=== PATIENT | male | born 1970 | race Caucasian/White ===

== ENCOUNTER 2019-05-23 09:07 | Emergency (ER) | payer BC, SELFPAY ==
[2019-05-23 09:12] VITALS: BP 144/80; PULSE 86; RESP 16; TEMP 36.9; O2SAT 100
--- NOTE | 2019-05-23 09:27 | ED.EAR ---
HPI - Ear Problem General Chief complaint: Ear Stated complaint: Ears and some swelling Time Seen by Provider: 05/23/19 09:19 Source: patient and RN notes reviewed Mode of arrival: ambulatory Limitations: no limitations History of Present Illness HPI Narrative: Patient presents today complaining of pain and swelling to the left ear x2 days. Prior to this, he reports clogged sensation to the right ear, but no pain. Complains of decreased hearing bilaterally. He has tried cleaning his ears out with peroxide and taking ibuprofen without much relief. He currently rates his pain /10. Denies any additional symptoms to include drainage from the ears or fever. MD Complaint: ear pain and decreased hearing Related Data Home Medications Medication Instructions Recorded Confirmed aspirin 81 mg PO DAILY 03/15/19 05/23/19 atorvastatin 40 mg PO DAILY 03/15/19 05/23/19 diclofenac sodium [Voltaren-XR] 75 mg PO BID 03/15/19 05/23/19 losartan 50 mg PO DAILY 03/15/19 05/23/19 Allergies Allergy/AdvReac Type Severity Reaction Status Date / Time bupropion Allergy Mild Rash Verified 05/23/19 09:15 Review of Systems Review of Systems: Narrative: CONSTITUTIONAL: Denies body aches, fever, chills, or sweats. EYES: Denies visual changes, redness, or discharge. ENT: Denies rhinorrhea, congestion, sore throat. +Left ear pain, bilateral decreased hearing CARDIOVASCULAR: Denies chest pain, palpitations, or edema. RESPIRATORY: Denies cough or dyspnea. GASTROINTESTINAL: Denies abdominal pain, nausea, vomiting, or diarrhea. GENITOURINARY: Denies dysuria or hematuria. SKIN: Denies rash, itching, or wounds. MUSCULOSKELETAL: Denies back pain, joint pain, or myalgia. NEUROLOGIC: Denies headache, numbness, tingling, or weakness. PSYCH: Denies depression or anxiety. PMFSH Social History Social History (Updated 03/15/19 @ 19:21 by PABLITO Devlin) Smoking status: Current every day smoker Comments At time of signature, I have reviewed and agree with nursing past medical, surgical, social and family history unless otherwise noted. Please see nursing chart for further information. There is no relevant family history pertinent to the presenting complaint Exam Narrative: Exam Narrative: GENERAL: Well-appearing, well-nourished, and in no acute distress. HEAD: Normocephalic, atraumatic. EYES: EOMI. No redness or drainage. Conjunctivae normal. ENT: Mucous membranes pink and moist. Nares clear. No rhinorrhea. Right ear:Cerumen impaction Without movement or tragal tenderness. Left ear: +Movement and tragal tenderness. Erythema to the external ear. Severe swelling of the ear canal with purulent crusted drainage.Preauricular lymphadenopathy. Throat normal. Uvula midline. NECK: Normal AROM. Supple. No lymphadenopathy. CHEST: No respiratory distress. EXTREMITIES: Normal range of motion. No edema. SKIN: Warm, dry, no rash. NEURO: No focal deficits. Alert and oriented x3. Gait steady. PSYCH: Normal affect. No signs of depression or anxiety. Course Vital Signs Vital signs: Vital Signs Temperature 98.5 F 05/23/19 09:12 Pulse Rate 86 05/23/19 09:12 Respiratory Rate 16 05/23/19 09:12 Blood Pressure 144/80 H 05/23/19 09:12 Pulse Oximetry 100 05/23/19 09:12 Temperature 98.5 F 05/23/19 09:12 Pulse Rate 86 05/23/19 09:12 Respiratory Rate 16 05/23/19 09:12 Blood Pressure 144/80 H 05/23/19 09:12 Pulse Oximetry 100 05/23/19 09:12 Reviewed. Pt has been instructed to follow up with his PCP regarding his elevated blood pressure today. Procedures Other Procedure Procedure 1: Other Procedure: Ear wick placed in left ear canal without complications. Medical Decision Making Differential Diagnosis Differential Diagnosis: Otitis media, otitis externa, ruptured TM, serous otitis, eustachian tube dysfunction, cerumen impaction Vital Signs Vital Signs: Vital Signs Temperature 98.5 F 05/23/19 09:12 Pulse R
== END 2019-05-23 09:40 | disposition home or self-care (01) ==
PROVIDERS: Emergency Provider Nurse Practitioner
DX: H60.502 Unspecified acute noninfective otitis externa, left ear (principal); H61.21 Impacted cerumen, right ear; F17.200 Nicotine dependence, unspecified, uncomplicated; E78.00 Pure hypercholesterolemia, unspecified; K21.9 Gastro-esophageal reflux disease without esophagitis
CPT/HCPCS: 99213; G0463

== ENCOUNTER 2022-07-23 18:30 | Emergency (ER) | payer BC, SELFPAY ==
[2022-07-23 18:44] VITALS: BP 159/97; PULSE 97; RESP 16; TEMP 36.8; O2SAT 100
--- NOTE | 2022-07-23 19:04 | ED.NAVMDI ---
HPI - Nausea/Vomiting/Diarrhea General Chief complaint: Nausea/Vomiting/Diarrhea Stated complaint: nausea diarrhea Source: patient and RN notes reviewed Limitations: no limitations History of Present Illness HPI Narrative: Patient is a 51-year-old male who presents to the [facility] with complaints of nausea and diarrhea starting this morning. He denies vomiting. States that he had pizza from [employer] the night before last which upset his stomach. Patient denies abdominal pain or tenderness. Denies recent fevers chills. Patient states that he had to miss work due to his symptoms and is in need of a note. Related Data Home Medications Medication Instructions Recorded Confirmed aspirin 81 mg chewable tablet 81 mg PO DAILY 03/15/19 05/23/19 atorvastatin 40 mg tablet 40 mg PO DAILY 03/15/19 05/23/19 losartan 50 mg tablet 50 mg PO DAILY 03/15/19 05/23/19 Allergies Allergy/AdvReac Type Severity Reaction Status Date / Time bupropion Allergy Mild Rash Verified 07/23/22 18:54 Review of Systems Review of Systems: CONSTITUTIONAL: Denies fever, chills, or sweats. EYES: Denies visual changes, redness, or discharge. ENT: Denies otalgia and sore throat CARDIOVASCULAR: Denies chest pain, palpitations, or edema. RESPIRATORY: Denies cough or dyspnea. GASTROINTESTINAL: Denies abdominal pain and vomiting. Reports nausea and diarrhea. GENITOURINARY: Denies dysuria or hematuria. SKIN: Denies rash or itching. MUSCULOSKELETAL: Denies back pain, joint pain, or myalgia. NEUROLOGIC: Denies headache, numbness, or weakness. Pertinent positives per HPI. PMFSH Past Medical History Medical History GERD (gastroesophageal reflux disease) HLD (hyperlipidemia) HTN (hypertension) Social History Social History Smoking status: Current every day smoker Comments At the time of my signature, I reviewed and agree with the nursing past medical, surgical, social, and family history. There is no relevant family history pertinent to the patient complaint. Exam Narrative: GENERAL: This is a well-nourished, well-developed patient, in no apparent distress. HEAD: normocephalic, atraumatic. EYES: Sclera clear/white. Vision is grossly intact. EARS: External ears normal. Hearing grossly intact. NOSE: External nose normal with no obvious nasal discharge, nares without redness, no rhinorrhea. THROAT: Mucous membranes moist, posterior pharynx clear. NECK: Neck supple, non-tender without lymphadenopathy, masses or thyromegaly. CARDIOVASCULAR: Regular rate and rhythm without murmurs, gallops, or rubs. RESPIRATORY: Clear to auscultation. Breath sounds equal bilaterally. No wheezes, rales, or rhonchi. GASTROINTESTINAL: Abdomen soft, non-tender, nondistended. Bowel sounds are active. No hepato-splenomegaly, or palpable masses. No guarding. SKIN: warm, intact with no suspicious lesions or rash, good texture and turgor. NEURO: awake, alert, and oriented to person, place and time. There were no obvious focal neurologic abnormalities. Course Course Level of Care: Express Care Visit Vital Signs Vital signs: Vital Signs Temperature 98.3 F 07/23/22 18:44 Pulse Rate 97 07/23/22 18:44 Respiratory Rate 16 07/23/22 18:44 Blood Pressure 159/97 H 07/23/22 18:44 Pulse Oximetry 100 07/23/22 18:44 Oxygen Delivery Room Air 07/23/22 18:44 Temperature 98.3 F 07/23/22 18:44 Pulse Rate 97 07/23/22 18:44 Respiratory Rate 16 07/23/22 18:44 Blood Pressure 159/97 H 07/23/22 18:44 Pulse Oximetry 100 07/23/22 18:44 Oxygen Delivery Room Air 07/23/22 18:44 Reviewed MDM - Nausea/Vomiting/Diarrhea MDM Narrative Medical decision making narrative: You've been diagnosed with a viral illness that would not require antibiotics at this time. Take the Zofran ODT at home as directed for nausea and get plenty of fluids. Y
== END 2022-07-23 19:06 | disposition home or self-care (01) ==
PROVIDERS: Emergency Provider Nurse Practitioner
DX: A08.4 Viral intestinal infection, unspecified (principal); K21.9 Gastro-esophageal reflux disease without esophagitis; E78.5 Hyperlipidemia, unspecified; I10 Essential (primary) hypertension; F17.200 Nicotine dependence, unspecified, uncomplicated
CPT/HCPCS: 99203; G0463

== ENCOUNTER 2023-12-15 08:58 | Emergency (ER) | payer BC, SELFPAY ==
[2023-12-15 09:05] VITALS: BP 131/89; PULSE 95; RESP 18; TEMP 36.8; O2SAT 98
--- NOTE | 2023-12-15 09:19 | ED.EYEPROB ---
HPI - Eye Problem General Chief complaint: Eye Problems Stated complaint: eyes swollen/red Time Seen by Provider: 12/15/23 09:20 Source: patient, RN notes reviewed and old records reviewed Mode of arrival: ambulatory Limitations: no limitations History of Present Illness HPI Narrative: 53 year old female who presents to [facility] care with complaints of one week duration of bilateral eye redness with drainage and swelling of bilateral eyes. Patient reports that he does wear contacts and did take them out and he has been wearing his glasses. He has used some OTC eye drops for his symptom which he states has helped the redness some but swelling continues with mucous drainage and some itching.. chief complaint: eye redness and other (drainage and itchy) Onset (ago): week(s) (1) Location: both eyes Severity scale (1-10): 6 Treatments Prior to Arrival: OTC eye drops Related Data Home Medications Medication Instructions Recorded Confirmed aspirin 81 mg chewable tablet 81 mg PO DAILY 03/15/19 12/15/23 atorvastatin 40 mg tablet 40 mg PO DAILY 03/15/19 12/15/23 losartan 50 mg tablet 50 mg PO DAILY 03/15/19 12/15/23 Allergies Allergy/AdvReac Type Severity Reaction Status Date / Time bupropion Allergy Mild Rash Verified 12/15/23 09:17 Review of Systems Review of Systems: CONSTITUTIONAL: Denies fever, chills, or sweats. EYES: Denies visual changes. Reports redness,, irritation, discharge of bilateral eyes ENT: Denies rhinorrhea, congestion, sore throat, or otalgia. CARDIOVASCULAR: Denies chest pain, palpitations, or edema. RESPIRATORY: Denies cough or dyspnea. SKIN: Denies rash or itching. NEUROLOGIC: Denies headache All systems reviewed & are unremarkable except as noted in HPI and below PMFSH Past Medical History Medical History (Updated 12/16/23 @ 09:14 by Jayda Cee NP) GERD (gastroesophageal reflux disease) HLD (hyperlipidemia) HTN (hypertension) Surgical History Surgical History (Updated 12/16/23 @ 09:12 by Jayda Cee NP) History of hand surgery right History of lumbosacral spine surgery Social History Social History (Updated 12/15/23 @ 09:44 by Jayda Cee NP) Smoking packs per day: 0.5 Smoking cigarettes per day: 10.0 Years smoked: 40 Smoking pack-years: 20.00 Smoking status: Current every day smoker Alcohol intake: former Substance use type: does not use Gender identity (if verbalized by the patient): Male Comments At time of signature, agree with nursing past medical, surgical, social and family history. There is no relevant family history pertinent to the presenting complaint Exam Narrative: GENERAL: Well-appearing, well-nourished, and in no acute distress. HEAD: Normocephalic, atraumatic. EYES: PERRLA and EOMI. Upper and lower eyelids swollen No periorbital cellulitis noted. Sclera and conjunctivae injected with mucoid drainage, visual acuity with glasses right 20/40,Left 20/50 ENT: Nares clear, no rhinorrhea or epistaxis. Mucous membranes moist. NECK: Supple.no lymphadenopathy CHEST: Clear to auscultation. No respiratory distress.SAO2 98% on room air HEART: Regular rate and rhythm. No murmur heard. Normal peripheral pulses. SKIN: Warm, dry, no rash. NEURO: No focal deficits. Alert and oriented x3. Course Course Emergency Course: Patient is aware of diagnosis, understands and agrees to treatment plan. Anticipatory guidance given. Patient agrees to follow-up as directed and is aware of reasons to seek care at the emergency department. Portions of this record may have been created with voice recognition software Level of Care: Express Care Visit Vital Signs Vital signs: Vital Signs Temperature 36.8 C 12/15/23 09:05 Pulse Rate 95 12/15/23 09:05 Respiratory Rate 18 12/15/23 09:05 Blood Pressure 131/89 12/15/23 09:05 Pulse Oximetry 98 12/15/23 09:05 Oxygen Delivery Room Air 12/15/23 09:05 Temperature 36.8 C 1
== END 2023-12-15 09:50 | disposition home or self-care (01) ==
PROVIDERS: Emergency Provider Registered Nurse
DX: H10.9 Unspecified conjunctivitis (principal); F17.210 Nicotine dependence, cigarettes, uncomplicated; K21.9 Gastro-esophageal reflux disease without esophagitis; E78.5 Hyperlipidemia, unspecified; I10 Essential (primary) hypertension; Z79.82 Long term (current) use of aspirin
CPT/HCPCS: 99213; G0463